=== PATIENT | female | born 1950 | race Caucasian/White ===

== ENCOUNTER 2016-07-01 14:24 | Emergency (ER) | payer MEDICARE ==
[~2016-07-01] VITALS: Ht 162.6 cm; Wt 79.4 kg
[~2016-07-01 14:24] MED LIST: MOTRIN800 MG PO; VICODIN 5/6 EACH/PAK OR
--- NOTE | 2016-07-01 14:47 | Emergency Room Report ---
History of Present Illness Time Seen by MD Curtis Presenting Problem in Triage Pt arrived:Wheelchair Presenting Problem:DAUGHTER THINKS PATIENT HAS HAD A STROKE. REPORTS THAT AT 0800 THIS PT SPEECH WAS SLURRED, AND HAD LEFT SIDED WEAKNESS. SLIGHT SLURRED SPEECH NOTED. PT REPORTS LEFT LEG BEING WEAK. LEFT DIRECTOR ON AIR LESS THAN RIGHT. Onset of symptoms date/time:07/01/16 or onset unknown for: Treatment Prior to Arrival: [employer] Provided by: Sepsis Risk Assessment: Temp: 98.3 B/P: 115/62 MAP: 79 Pulse: 75 Resp: 16 Recent fever? N Clinical Suspician of Infection? N Mental Status: 2 - Mildly Altered Sepsis Risk:Low Sepsis Risk Have you (or family members/close friends) recently traveled outside the [place]? N If Yes, where/when: Have you had exposure to infectious disease within the past month? N TB? Other? Specify: Comment History obtained from patient and daughter. The patient states that at 8 AM she developed a frontal headache. Her daughter says that her speech has been slurred , she had difficulty ambulating, running into things while at [facility] today. She is dropping things that she tries to hold with her LEFT hand. The patient also feels her LEFT leg is weak. She is RIGHT hand dominant. She denies visual loss. ALLERGIES Coded Allergies: hydrocortisone (07/01/16) lidocaine (07/01/16) Uncoded Allergies: PCN (07/01/16) Home Medications Active Scripts Ibuprofen (Motrin 800MG) 800 MG PO TID 14 Days Prov: 11/05/07 Hydrocodone-Acetaminophen (Vicodin 5/500(Generic) 6-Tab Take Home Sourav) 1 EACH OR Q4HP #6 Prov: 11/05/07 History Medical History General CAD? No Angina: No [place]: No Hypertension? Yes Hyperlipidemia? Yes CHF? No DVT? No PE? No COPD? No Asthma? No Anemia? No GERD? No Gastric ulcers? No GI Bleed? No Hernia? No Hypothyroidism? No CVA? No Seizures? No Diabetes? No UTI? Yes Stones? No GB Disease: No Hepatitis? No Cataracts? No Glaucoma? No MRSA? No TB? No Cancer? Yes Site: SKIN- LT CHEST Immunization Hx DT/Tetanus 2004 Surgical Hx Previous Surgery?Y Tubal Ligation Hysterect Family History Family Hx Diabetes Yes CAD Yes Hypertension Yes Cancer Yes TB No Social History Smoking Hx Smoker: Current Every Day Smoker Tobacco: Yes Type Cigarettes Packs/day < 1 Pack Alcohol Alcohol: No Review of Systems All Other Systems Reviewed and Negative Constitutional denies fever Eyes denies blindness, denies blurred vision Respiratory denies shortness of breath Cardiovascular denies chest pain Psychiatric/Neurological headache, weakness Physical Exam Vital Signs Vital Signs Date Time Temp Pulse Resp B/P Pulse O2 O2 Flow FiO2 Ox Delivery Rate 07/01 1512 80 16 116/72 100 2 07/01 1433 98.3 75 16 115/62 100 General Appearance normal appearance, WD/WN Eye Exam - bilateral eye normal exam, bilateral eye PERRL, bilateral eye EOMI Ear, Nose, Throat hearing grossly normal, normal ENT inspection Neck normal inspection, non-tender, supple, full range of motion Respiratory Status Yes: trachea midline, chest symmetrical, non tender chest. No: respiratory distress. Lung Sounds bilateral: normal breath sounds, lungs clear. Cardiovascular normal exam, regular rate/rhythm, no peripheral edema, no gallop, no JVD, no murmur, no rub, normal peripheral pulses Peripheral Pulses Pulses normal Yes Gastrointestinal normal bowel sounds, normal exam, non tender, soft, no organomegaly Back normal inspection, no CVA tenderness, no vertebral tenderness Extremities non-tender, normal range of motion, normal inspection Neurologic alert, see NIH stroke scale. Left-sided neglect and mild dysarthria and aphasia on exam. Mental status normal mood/affect Skin intact, normal color, warm/dry Stroke Score/Tx Stroke Evaluation Initial symptoms indicative of possible stroke? Yes NIH STROKE SCORE NIH STROKE SCORE Response Value 1a.Level of Consciousness ALERT 0 1b.LOC Questions ANSWERS BOTH CORRECTLY 0 1c.LOC Commands OBEYS BOTH CORRECTLY 0 2 .Best Gaze NORMAL 0 3 .Visual NO VISUAL LOSS 0 4 .Facial Palsy NORMAL 0 5a.Motor Arm Left NO DRIFT 0 5b.Motor Arm Right NO DRIFT 0 6a.Motor Leg Left NO DRIFT 0 6b.Motor Leg Right NO DRIFT 0 7 .Limb Ataxia ABSENT 0 8 .Sensory NORMAL 0 9 .Best Language MILD TO MODERATE APHASIA 1 10.Dysarthria MILD TO MOD DYSARTHRIA 1 ED.NIH11 COMPLETE NEGLECT 2 Total 4 Treatment Consideration t-PA ordered? No Reason t-PA excluded: Drug tx not indicated Medical Decision Making LABS/Meds/Orders Pt receiving controlled substance in ED? No Results/Orders Laboratory Tests 07/01/16 1515: Lactic Acid Pending 07/01/16 1450: Sodium 128 L, Potassium 3.0 L, Chloride 91 L, Carbon Dioxide 26, BUN 20 H, Creatinine 1.6 H, Estimated Creat Clear 43 L, Estimated GFR (MDRD) 32 L, Glucose 140 H, Calcium 8.5, Total Bilirubin 0.7, AST 13 L, ALT 14, Alkaline Phosphatase 102, Total Protein 6.2 L, Albumin 2.9 L, Globulin 3.3 H, Albumin/ Globulin Ratio 0.9 L, PT 11.9 H, INR 1.11 H, WBC 23.9 *H, RBC 3.13 L, Hgb 10.6 L, Hct 28.0 L, MCV 89.4, RDW 13.9, Plt Count 305, MPV 6.5 L, Gran % 90.7 H, Gran # 21.6 H, Total Counted 100, Lymphocytes % 5.8 L, Monocytes % 2.6, Eosinophils % 0.7, Basophils % 0.2, Neutrophils 87 H, Band Neutrophils 2, Lymphocytes (Manual) 6 L, Lymphocytes # 1.4, Monocytes (Manual) 4, Monocytes # 0.6, Eosinophils # 0.2, Eosinophils # (Manual) 1, Basophils # 0.0, Platelet Estimate NORMAL, Poikilocytosis 2+, Anisocytosis 2+, Ovalocytes 1+, PUBS MCHC 38.1 H, MCH 34.1 H Current Medication Orders Sig/Rosa Maria Start time Last Medication Dose Route Stop Time Status Admin Potassium Chloride 60 MEQ ONCE ONE 07/01 1530 AC PO 07/01 1531 Potassium Chloride 0 .STK-MED ONE 07/01 1519 DC PO Orders Procedure Date/time Status DIET-NOTHING BY MOUTH 07/01 D Active CHEST-PORTABLE 07/01 1509 Active CULTURE, BLOOD 07/01 1509 Active URINALYSIS/COMPLETE 07/01 1509 Active LACTIC ACID 07/01 1509 Active IV SALINE LOCK 07/01 1458 Active ELECTROCARDIOGRAM REQUEST 07/01 1454 Active DIFFERENTIAL-WBC 07/01 1450 Complete PROTHROMBIN TIME 07/01 1449 Complete CBC WITH AUTO DIFF 07/01 1449 Complete CHEM 12 PROFILE 07/[address] HEAD REQ 07/01 1439 Complete 12 LEAD EKG-GAGE (INITIAL) 07/01 UNK Active XRAY/CT/US XRAY/CT/US XRAY chest Comment X-ray interpreted by Terrance Cleary M.D. No infiltrate, pneumothorax, pleural effusion, or wide mediastinum. Progress - 2:55 PM: Head CT negative per radiologist. Call placed to stroke team. 3:00 PM: Case discussed with Dr. Mueller, [facility] stroke team. She requests the patient be transferred to [facility] emergency department for evaluation. No treatment requested. 3:10 PM: Discussed elevated WBC with patient and daughter. The patient had recent sinus infection, but currently asymptomatic. She denies cough, urinary symptoms, vomiting, diarrhea. She denies being told that she has a chronically elevated WBC. Last WBC performed here was 2004. It was normal. Departure Departure Disposition DC/XFER from ER to [facility]. Hosp Clinical Impression Primary Impression: CVA (cerebral vascular accident) Qualifiers: CVA mechanism: unspecified Qualified Code: I63.9 - Cerebral infarction, unspecified Secondary Impressions: Leukocytosis Qualifiers: Leukocytosis type: unspecified Qualified Code: D72.829 - Elevated white blood cell count, unspecified Condition STABLE Referrals Pratibha Walker MD (Family) ED Critical Care Critical Care No at 1530
--- NOTE | 2016-07-01 14:56 | RADIOLOGY REPORT PS360 ---
CT HEAD W/O CONTRAST HISTORY: Slurred speech and left-sided weakness STROKE LIKE SYMPTOMS ORDERING PHYSICIAN: Terrance Cleary MD PATIENT AGE: 66 years COMPARISON: None TECHNIQUE: Axial images obtained without contrast. Brain and bone windows reviewed. FINDINGS: No midline shift, mass effect, intracranial hemorrhage, hydrocephalus, or extra-axial fluid collection is evident. The calvarium has an unremarkable appearance. No mastoid effusion. There is mild mucosal thickening in the left sphenoid sinus and in the ethmoid sinuses.. IMPRESSION: 1. No acute intracranial pathology. 2. Mild sinus disease. 3. There is no evidence of intracranial hemorrhage, focal mass, or acute territorial infarction. A negative CT does not exclude an acute CVA. A follow-up head CT or MRI is recommended if neurological symptoms persist .
[2016-07-01 14:57] LABS: LYMPH # 1.4 K/mm3 (0.7-4.5); LYMPH % 5.8 % (10-50.0)
[2016-07-01 15:05] LABS: HEMOGLOBIN 10.6 g/dL (12.2-16.2)
[2016-07-01 15:19] LABS: NEUTROPHILS 87 % (42-76)
[2016-07-01 15:25] VITALS: BP 116/72
--- NOTE | 2016-07-01 16:02 | RADIOLOGY REPORT PS360 ---
CHEST-PORTABLE HISTORY: cva symptoms, high wbc ORDERING PHYSICIAN: Terrance Cleary MD PATIENT AGE: 66 years COMPARISON: None available FINDINGS: The cardiomediastinal silhouette and pulmonary vascularity are within normal limits. The lungs are clear without infiltrates, suspicious nodules, or pleural effusions. 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 IMPRESSION: No acute finding
== END 2016-07-01 15:25 | disposition short-term general hospital (02) ==
LOC: ER 14:24
PROVIDERS: Emergency Medicine
DX: I63.9 Cerebral infarction, unspecified (principal); R47.81 Slurred speech; G81.94 Hemiplegia, unspecified affecting left nondominant side; I10 Essential (primary) hypertension; R29.704 NIHSS score 4; Z72.0 Tobacco use